=== PATIENT | female | born 1995 | race Caucasian/White ===

== ENCOUNTER 2016-12-19 16:13 | Emergency (ER) | payer OTHER ==
[2016-12-19] MEDS ORDERED: FAMOTIDINE 20 MG/2 ML SDV ONE (16:31)
--- NOTE | 2016-12-19 16:35 | EDPHY ---
H & P Stated Complaint: FACIAL SWELLING Time Seen by Provider: 12/19/16 16:29 HPI/ROS: CHIEF COMPLAINT: Possible allergic reaction HISTORY OF PRESENT ILLNESS: 21-year-old female generally healthy arrives via private vehicle with her trainer. She was that [facility] [employer] [facility] track practice started to notice itching, swelling in the periorbital region. personal trainer at gave her 50 mg oral Benadryl and transported her. She has only prior history of similar reaction years ago when she Interacted with a dog. She has been experiencing URI symptoms for the past few days. No history of hospitalization or intubation for allergic reaction. No EpiPen history. Currently complaining of periorbital swelling. No dyspnea. No abdominal pain. No nausea or vomiting. No back or flank pain. PRIMARY CARE PROVIDER: student [facility] REVIEW OF SYSTEMS: A ten point review of systems was performed and is negative with the exception of the items mentioned in the HPI PAST MEDICAL & SURGICAL HISTORY: No pertinent medical or surgical history SOCIAL HISTORY: Student. 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 PHYSICAL EXAM (Prior to examination, patient consented to physical exam, hands were washed and my usual and customary physical exam procedures followed) 1) GENERAL: Well-developed, well-nourished, alert and oriented. Appears nontoxic 2) HEAD: Normocephalic, atraumatic 3) HEENT: Pupils equal, round, reactive to light bilaterally. bilateral periorbital edema. Sclera anicteric. Nasopharynx, oropharynx, clear, no lesions. No trismus or drooling. No tonsillar glossal enlargement. Ears bilaterally with normal tympanic membranes. 4) NECK: Full range of motion, no meningeal signs. 5) LUNGS: Clear auscultation bilaterally, no wheezes, no rhonchi, no retractions. 6) HEART: Regular rate and rhythm, no murmur, no heave, no gallop. 7) ABDOMEN: No guarding, no rebound, no focal tenderness, 8) MUSCULOSKELETAL: Moving all extremities, no focal areas of tenderness, no obvious trauma. No peripheral edema or discoloration. 9) BACK: No CVA tenderness. 10) SKIN: diffuse urticaria . 11) Psychiatric: Patient is oriented X 3, there is no agitation. DIFFERENTIAL DIAGNOSIS: no particular include but limited to anaphylaxis, urticaria, contact dermatitis - Personal History LMP (Females 10-55): Extended Cycle BCP/Inj Current Tetanus Diphtheria and Acellular Pertussis (TDAP): Yes - Medical/Surgical History Other PMH: DENIES - Social History Smoking Status: Never smoked Constitutional: Initial Vital Signs Temperature (C) 36.6 C 12/19/16 16:23 Heart Rate 49 L 12/19/16 16:23 Respiratory Rate 16 12/19/16 16:23 Blood Pressure 107/72 12/19/16 16:23 O2 Sat (%) 98 12/19/16 16:23 O2 Delivery Mode Room Air Allergies/Adverse Reactions: Penicillins Allergy (Verified 12/19/16 16:23) Home Medications: Medication Instructions Recorded EPINEPHRINE [EPIPEN] 0.3 mg IM ONCE #2 syr 12/19/16 Medical Decision Making ED Course/Re-evaluation: 4:35 p.m.: Evaluated by myself. Discussed case with Dr. Knowles in the ER. Patient has already received Benadryl. She will be given Pepcid, Solu-Medrol, epinephrine and re-evaluated in observed in the ER. 5:04 p.m.: Re-evaluation. Feeling improvement After Pepcid Solu-Medrol epinephrine 5:46 p.m.: Re-evaluation. Progressive improvement. Lungs clear bilaterally. Breathing comfortably. Periorbital edema decreasing. 6:20 p.m.: Re-evaluation. Asymptomatic. Periorbital edema resolved. Airway patent no tonsillar glossal enlargement. Lungs clear bilaterally. Plan will be discharge. We discussed my usual customary allergic reaction precautions instructions. She lives in [place] and feels comfortable being discharged. Informed that should she develop rebound symptoms she needs to call 911. I believe her to have decision-making capacity. All questions and concerns addressed by myself. Discharged with EpiPen prescription. - Data Points Medications Given: Discontinued Medications Epinephrine HCl (Epinephrine) 0.3 mg IM EDNOW ONE Stop: 12/19/16 17:02 Last Admin: 12/19/16 17:03 Dose: 0.3 mg Famotidine (Pepcid) 20 mg IVP EDNOW ONE Stop: 12/19/16 17:02 Last Admin: 12/19/16 17:03 Dose: 20 mg Methylprednisolone Sodium Succinate (Solu-Medrol) 125 mg IVP EDNOW ONE Stop: 12/19/16 17:02 Last Admin: 12/19/16 17:03 Dose: 125 mg Departure - Departure Disposition: Home, Routine, Self-Care Clinical Impression: Allergic reaction Qualifiers: Encounter type: initial encounter Qualified Code(s): T78.40XA - Allergy, unspecified, initial encounter Condition: Good Instructions: General Allergic Reaction (ED) Additional Instructions: If you develop allergic reaction like symptoms, use your epipen right away and call 911. Referrals: MIRIAM CLINE [Primary Care Provider] - 2-3 days, call for appt. Prescriptions: EPINEPHRINE [EPIPEN] 0.3 mg IM ONCE #2 syr
[2016-12-19] MEDS ORDERED: FAMOTIDINE 20 MG/2 ML SDV IVP ONE (17:01)
[2016-12-19] MEDS ORDERED: methylPREDNISolone SOD SUCC 125 MG/2 ML VIAL IVP ONE (17:01)
[2016-12-19 18:45] VITALS: BP 132/78; PULSE 70; RESP 14; TEMP 98.4; O2SAT 94
== END 2016-12-19 18:43 | disposition home or self-care (01) ==
DX: T78.40XA Allergy, unspecified, initial encounter (principal)
CPT/HCPCS: 96374

== ENCOUNTER 2017-11-13 11:19 | Emergency (ER) | payer OTHER ==
--- NOTE | 2017-11-13 11:33 | EDPHY ---
H & P Stated Complaint: allergic reaction to ibu x 30 mins - Personal History LMP (Females 10-55): Now Current Tetanus/Diphtheria Vaccine: Unsure Current Tetanus Diphtheria and Acellular Pertussis (TDAP): Unsure - Medical/Surgical History Hx Asthma: No Hx Chronic Respiratory Disease: No Hx Diabetes: No Hx Cardiac Disease: No Hx Renal Disease: No Hx Cirrhosis: No Hx Alcoholism: No Hx HIV/AIDS: No Hx Splenectomy or Spleen Trauma: No Other PMH: DENIES - Social History Smoking Status: Never smoked Time Seen by Provider: 11/13/17 11:24 HPI/ROS: CHIEF COMPLAINT: Possible allergic reaction HISTORY OF PRESENT ILLNESS: 22-year-old female prior history of allergic reaction to unknown substance, had completed her track practice this morning, taken a dose of Naprosyn and shortly thereafter felt allergic reaction like symptoms, notably perioral and facial edema, dysphagia, erythema. This occurred approximately 30 min ago. She took 50 mg of Benadryl orally which she is able tolerate. Did not use her EpiPen. Arrives via private vehicle. No chest pain or dyspnea. No wheezing. No abdominal pain. No nausea or vomiting. PRIMARY CARE PROVIDER: REVIEW OF SYSTEMS: A ten point review of systems was performed and is negative with the exception of the items mentioned in the HPI PAST MEDICAL & SURGICAL HISTORY: Prior history of anaphylaxis. Has not required intubation or hospitalization for similar. SOCIAL HISTORY:[employer] student. PHYSICAL EXAM (Prior to examination, patient consented to physical exam, hands were washed and my usual and customary physical exam procedures followed) 1) GENERAL: Well-developed, well-nourished, alert and oriented. Appears nontoxic. 2) HEAD: Normocephalic, atraumatic 3) HEENT: Perioral edema, facial edema noted. Pupils equal, round, reactive to light bilaterally. Sclera anicteric. Nasopharynx, oropharynx, clear, no lesions. No trismus or drooling. No tonsillar glossal enlargement. 4) NECK: Full range of motion, no meningeal signs. 5) LUNGS: Clear auscultation bilaterally, no wheezes, no rhonchi, no retractions. 6) HEART: Regular rate and rhythm, no murmur, no heave, no gallop. 7) ABDOMEN: No guarding, no rebound, no focal tenderness, negative McBurney's, negative Tomas's, negative Rovsing's, negative peritoneal sign, 8) MUSCULOSKELETAL: Moving all extremities, no focal areas of tenderness, no obvious trauma. No peripheral edema or discoloration. 9) BACK: No CVA tenderness, no midline vertebral tenderness, no fluctuance, no step-off, no obvious trauma, no visual or palpable abnormality. 10) SKIN: Diffuse erythema noted 11) Psychiatric: Patient is oriented X 3, there is no agitation. DIFFERENTIAL DIAGNOSIS: In no particular include but limited to urticaria, anaphylaxis, anaphylactoid reaction (Ricarda Farmer) Constitutional: Initial Vital Signs Temperature (C) 36.9 C 11/13/17 11:22 Respiratory Rate 18 11/13/17 11:22 Blood Pressure 117/72 11/13/17 11:22 O2 Sat (%) 99 11/13/17 11:22 O2 Delivery Mode Room Air Allergies/Adverse Reactions: ibuprofen Allergy (Verified 11/13/17 11:47) naproxen [From Aleve] Allergy (Verified 11/13/17 11:47) NSAIDS (Non-Steroidal Anti-Inflamma Allergy (Verified 11/13/17 11:47) Penicillins Allergy (Verified 12/19/16 16:23) Home Medications: Medication Instructions Recorded EPINEPHRINE [EPIPEN] 0.3 mg IM ONCE #2 syr 12/19/16 EPINEPHRINE [EPIPEN] 0.3 mg IM ONCE #2 syr 11/13/17 Medical Decision Making ED Course/Re-evaluation: I have discussed and evaluated this patient with Antoine Farmer. I agree this patient needs the above treatment as she is having a true allergic reaction. On repeat evaluations as patient continues to get better. She will require epinephrine pen to go home as well as close follow-up from crayon sawyer. (Tyrel López) 11:32 a.m.: Discussed case with Dr. Tyrel López, secondary supervising position. Patient will be given epinephrine, ranitidine, Solu-Medrol, has just been a dose of Benadryl prior to arrival 12:26 p.m.: Re-evaluation after epinephrine, ranitidine, Solu-Medrol. Patient appears significantly improved. Lungs clear. Erythema resolved. Periorbital edema significantly decreased. Will continue to observe patient in the ER for period of time 1:29 p.m.: Re-evaluation, patient appears significantly improved, lungs are clear bilaterally, erythema resolved, airway patent. Mild periorbital edema remains. I think the patient can be discharged home. Discussed usual and customary allergic reaction precautions and instructions, usage of EpiPen, she has since supply, nonetheless given another prescription. Recommend follow up with crayon sawyer. (Ricarda Farmer) - Data Points Medications Given: Discontinued Medications Epinephrine HCl (Epinephrine) 0.3 mg IM EDNOW ONE Stop: 11/13/17 11:43 Last Admin: 11/13/17 11:45 Dose: 0.3 mg Sodium Chloride (Ns) 1,000 mls @ 0 mls/hr IV EDNOW ONE; Wide Open PRN Reason: Protocol Stop: 11/13/17 11:50 Last Admin: 11/13/17 11:51 Dose: 1,000 mls Methylprednisolone Sodium Succinate (Solu-Medrol) 125 mg IVP EDNOW ONE Stop: 11/13/17 11:44 Last Admin: 11/13/17 11:46 Dose: 125 mg Ranitidine HCl (Zantac) 50 mg IVP EDNOW ONE Stop: 11/13/17 12:15 Last Admin: 11/13/17 12:37 Dose: 50 mg Departure - Departure Disposition: Home, Routine, Self-Care Clinical Impression: Allergic reaction Qualifiers: Encounter type: initial encounter Qualified Code(s): T78.40XA - Allergy, unspecified, initial encounter Condition: Good Instructions: General Allergic Reaction (ED) Additional Instructions: If you developed symptoms of and allergic reaction use your EpiPen and call 911 immediately. Referrals: Ashley Miner MD [[facility] [place]] - 5-7 days, call for appt. (Dr. Ashley Miner is an crayon sawyer) Prescriptions: EPINEPHRINE [EPIPEN] 0.3 mg IM ONCE #2 syr
[2017-11-13] MEDS ORDERED: methylPREDNISolone SOD SUCC 125 MG/2 ML VIAL IVP ONE (11:43)
[2017-11-13 11:47] VITALS: TEMP 98.4
[2017-11-13] MEDS ORDERED: NS 1,000 ML IV ONE (11:49)
[2017-11-13] MEDS ORDERED: RANITIDINE 50 MG/2 ML VIAL IVP ONE (12:14)
[2017-11-13 13:55] VITALS: BP 120/73; PULSE 63; RESP 16; O2SAT 97
[2017-11-13] MEDS ORDERED: RANITIDINE 50 MG/2 ML VIAL ONE (17:11)
[2017-11-13] MEDS ORDERED: methylPREDNISolone SOD SUCC 125 MG/2 ML VIAL ONE (17:11)
== END 2017-11-13 13:51 | disposition home or self-care (01) ==
DX: L53.9 Erythematous condition, unspecified (principal); T39.315A Adverse effect of propionic acid derivatives, initial encounter; E86.9 Volume depletion, unspecified
CPT/HCPCS: 96374; J0171; J1200; J2780; J2930